=== PATIENT | male | born 1960 | race Caucasian/White ===

== ENCOUNTER → 2017-02-24 | Outpatient (CLI) | payer OTHER ==
[~2017-02-24] MED LIST: ATV/1 PO; BENADRYL PO; CLR10 PO; LAMO150T32 PO; LITH600C PO; TADA10TA PO
[2017-02-24 10:51] LABS: ALT/SGPT 22 U/L (12-78); AST/SGOT 9 U/L (15-37); BLOOD UREA NITROGEN 15 mg/dl (7-18); BUN/CREATININE RATIO 12.5 (10-20); CALCIUM 8.6 mg/dl (8.5-10.1); CARBON DIOXIDE 27 mmol/L (21-32); CHLORIDE 111 mmol/L (98-107); GLUCOSE 144 mg/dl (70-99); POTASSIUM 4.2 mmol/L (3.5-5.1); SODIUM 145 mmol/L (136-145)
[2017-02-24 10:57] LABS: ALB/GLOB RATIO 1.1 (0.9-2); ALKALINE PHOSPHATASE 76 U/L (45-117)
== END | disposition home or self-care (01) ==
LOC: C.LAB1850 09:16
PROVIDERS: ATTEND Family Medicine
DX: N40.1 Benign prostatic hyperplasia with lower urinary tract symptoms (principal); Z11.59 Encounter for screening for other viral diseases; N32.81 Overactive bladder

== ENCOUNTER → 2017-06-25 | Outpatient (CLI) | payer OTHER ==
[2017-06-25 13:24] LABS: ESTIMATED AVERAGE GLUCOSE 111 mg/dl; HA1C FLAG Normal (Normal)
[2017-06-25 15:07] LABS: ALT/SGPT 22 U/L (12-78); AST/SGOT 9 U/L (15-37); BLOOD UREA NITROGEN 12 mg/dl (7-18); CALCIUM 8.9 mg/dl (8.5-10.1); CARBON DIOXIDE 27 mmol/L (21-32); CHLORIDE 110 mmol/L (98-107); CHOLESTEROL 185 mg/dl (0-200); GLUCOSE 80 mg/dl (70-99); POTASSIUM 4.3 mmol/L (3.5-5.1); SODIUM 145 mmol/L (136-145); TRIGLYCERIDES 149 mg/dl (0-150); VERY LOW DENSITY LIPOPROT CALC 30 mg/dl
[2017-06-25 15:18] LABS: ALB/GLOB RATIO 1.1 (0.9-2); ALKALINE PHOSPHATASE 66 U/L (45-117); CHOLESTEROL/HDL RATIO 5.1; HDL CHOLESTEROL 36 mg/dl; LDL CHOLESTEROL CALCULATED 119 mg/dl
== END | disposition home or self-care (01) ==
LOC: C.LAB1850 11:29
PROVIDERS: ATTEND Physician Assistant Medical
DX: Z00.00 Encounter for general adult medical examination without abnormal findings (principal); N32.81 Overactive bladder; G47.33 Obstructive sleep apnea (adult) (pediatric)

== ENCOUNTER → 2017-08-13 | Outpatient (CLI) | payer OTHER | END | disposition home or self-care (01) | LOC: C.PATHSPEC 16:01 | PROVIDERS: ATTEND Dermatology | DX: D22.5 Melanocytic nevi of trunk (principal) ==

== ENCOUNTER → 2017-08-25 | Outpatient (CLI) | payer OTHER ==
--- NOTE | 2017-08-26 05:40 | PAP/PSG TECHNICIAN REPORT ---
[facility] Clay Temperer Polysomnogram Report Study name: None Report date: 08/26/2017 Study date: 08/25/2017 Referring Physician: Dr. Kevin Dinero DO Name: EVELYN SCHULZ Interpreting Physician: Kevin Dinero D.O. Date of : 1960 Clay Temperer: AL Ramirez. Sex: Male Age: 56 StudyType: PSG Weight: 210 lbs Height: 56 years, Height 5' 10.5" Neck Circum: 17 inches BMI: 29.7 Medications: Fluticasone Propionate 50 MCG/ACT, Lamictal 150 mg, [place] Carbonate 300 mg, Claritin D, Lorazepam 0.5 mg Patient History 56 yr. old male here for a possible split night sleep study in room 2. Patient complains of snoring, and witnessed apneas by his . Patient has tried CPAP in the past without success. He has an over active bladder and gets up 5-8 times to use the restroom. Patients [place] Sleepiness Scale Score is 10/24. Parameters Monitored NPSG: E1-M2, E2-M1, Fp1-M2, Fp2-M1, F3-M2, F4-M2, F4-M1, C3-M2, C4-M2, C4-M1, O1-M2, O2-M2, O2-M1, T3-M2, T4-M1, P3-M2, P4-M1, CHIN1, CHIN2, HR, EKG, Legs, PFLOW, SNOR, FLOW, CFLOW, Tidal Volume, THOR, ABDO, SpO2, PLTH, CPRESS, ETCO2 Wave, ETCO2, pH Sleep Architecture Sleep Stages Time at Lights Off 10:57:32 PM STAGES Time (min.) TST (%) Time at Lights On 5:22:02 AM Wake 274.5 -- Total Recording Time (TRT) 384.50 min. N1 49.5 45 Total Sleep Period (TSP) 345.5 min. N2 60.5 55 Total Sleep Time (TST) 110.0min. N3 0.0 0 Awake Time 274.5 min. REM 0.0 0 Wake after Sleep Onset 268.0 min. Sleep Efficiency (SE) 29 % Sleep Onset Latency (ANKUR) 6.5 min. Number of Stage 1 Shifts None Awakenings 45 Stage Changes 128 Number of REM periods N/A REM 0.0 0 REM Latency NONE min. NREM 110.0 100 Body Position Analysis Supine Right Left Side Prone Vertical Total Sleep Time (min.) 154.7 12.5 0.0 12.45 95.4 10.5 Total Sleep Time (%) 72% 11% 0% 11 14% 100% Total Sleep Time REM (min.) 0.0 0.0 0.0 None 0.0 0.0 Total Sleep Time NREM (min.) 79.0 12.5 0.0 None 15.5 3.0 Intermittent Wake (min.) 75.7 111.4 0.0 None 79.9 7.4 Total Sleep Period (%) 39% None None None None None Arousals Myoclonus (PLM) * Events Count Index Events Count Index Spontaneous 10 5 Events Awake (PLMW) 430 94.0 Respiratory 53 32.2 Events Asleep w/ Arousal (PLMA) 19 10.4 PLM 18 10 Events Asleep w/o Arousal (PLMS) 87 47.5 Snoring 16 9 Total Asleep 106 57.8 Total 97 53 Total 536 84 Respiratory Analysis * CA OA MA CH H RERA Total Count 2 67 4 0 39 3 112 Index 1.1 36.5 2.2 0 21.3 2 62.7 Mean Duration 16.4 24.0 17.0 0.00 20.7 24.0 22.5 Longest Duration 20.3 48.5 19.6 0.00 19.6 24.2 49.7 Respiratory Event Summary Total Supine ~Supine Right Left Prone REM NREM Apneas Count 73 62 11 8 N/A 3 N/A 73 Index 39.8 47 21 38.5 N/A 12 N/A 40 Hypopneas (4% Desat) Count 39 32 7 0 N/A 6 N/A 39 Index 21.3 24.3 14 0.0 N/A 23.2 N/A 21.3 Apneas & All Hypopneas Count 112 94 18 8 N/A 9 N/A 112 Index 61.1 71 35 39 N/A 35 N/A 61.1 Respiratory Events (Medical Oncology Physician+All Hyp+RERA) Count 112 97 18 8 N/A 9 N/A 112 Index 62.7 74 35 38.5 N/A 34.8 N/A 62.7 Respiratory Related Arousal Count 53 97 12 8 N/A 4 N/A 59 Index 32.2 36 23 39 N/A 15 N/A 32 Snoring Analysis Supine Right Left Prone REM NREM Total Snore duration 14.5 min Snores count 304 19 N/A 76 N/A 412 412 Snore mean duration 2.1 Sec Snores index 231 92 N/A 294 N/A 224.7 224.7 TST with snoring (%) 13.2% Desaturation Event Summary: Minimum %SpO2 Event Count Mean/Min/Max Duration(sec.) Desaturation Index % Time In Bed > 90 154 24.4 / 8.0 / 58.0 28.1 94.0 86 - 90 6 18.8 / 10.5 / 27.8 18.2 5.7 81 - 85 1 14.8 / 14.8 / 14.8 53.9 0.3 76 - 80 0 N/A 0.0 0.0 71 - 75 0 N/A 0.0 0.0 66 - 70 0 N/A 0.0 0.0 61 - 65 0 N/A 0.0 0.0 56 - 60 0 N/A 0.0 0.0 51 - 55 0 N/A 0.0 0.0 < 50 0 N/A 0.0 0.0 Total REM NREM Awake <50% 0.0 min. 0.0 min. 0.0 min. 0.0 min. 51 - 60% 0.0 min. 0.0 min. 0.0 min. 0.0 min. 61 - 70% 0.0 min. 0.0 min. 0.0 min. 0.0 min. 71 - 80% 0.0 min. 0.0 min. 0.0 min. 0.0 min. 81 - 90% 20.9 min. 0.0 min. 10.2 min. 10.6 min. 91 - 100% 328.5 min. 0.0 min. 99.1 min. 229.5 min. Average 94 0 93 94 Minimum SpO2 80 N/A 86 80 Desaturation Event Index 24.2 0.0 50.7 14.2 # Desat. Events below 89% 25 N/A 11 14 Time(%) with Saturation below 89% 1.2 0.0 0.5 0.7 Time(min.) with Saturation below 89% 4.2 0.0 1.6 2.6 Time (mins) REM (mins) NREM (mins) % of TST SpO2 Below 90% 61 N/A N61 3.4 SpO2 Below 88% 5 0 0 0 Heart Rate Analysis Min (bpm) Max (bpm) Average (bpm) Awake 54 127 66 NREM 52 81 64 REM N/A N/A N/A Overall 52 81 64 Supplemental O2 Values Minimum O2 level: None Value Start Time End Time Clay Temperer Comments Mr. Schulz slept in the right, left, supine and prone positions. No cardiac arrhythmia. PLMs noted. No bruxism noted. Snoring was noted and scored as a 3 on a scale of 0 through 5. (0=no snoring, 5=snoring loud enough to be heard through a closed door or down the [address]) Mr. Schulz used the restroom seven times during the night. Mr. Schulz stated, that was a rough night. The final report will be interpreted and signed by a sleep physician. The completed physician report will then be placed in the patient medical record. Therapy (cm H2O) 0 TIB (min.) 384.5 TST (min.) 110.0 Sleep Onset (min.) 6.5 REM Onset From Sleep (min.) NONE Sleep Efficiency % 29 Wakefulness (%) 71 Wakefulness (min.) 274.5 NREM 1 (%) 45 NREM 1 (min.) 49.5 NREM 2 (%) 55 NREM 2 (min.) 60.5 NREM 3 (%) 0 NREM 3 (min.) 0.0 REM (%) 0 REM (min.) 0.0 # Arousals 97 Arousal Index 53 # Snore 412 Snore Index 224.7 AHI 61.1 AHI Supine 71 AHI Non-Supine 35 NREM AHI 61.1 REM AHI N/A RDI 62.7 # Obstructive Apnea 67 # Central Apnea 2 # Mixed Apnea 4 # Hypopneas 39 RERAs 3 Total Respiratory Events 146 Time Below SpO2 89% (min.) 1.6 Mean NREM SpO2 (%) 93 Mean REM SpO2 (%) N/A Mean Sleep SpO2 (%) 93 Min NREM SpO2 (%) 86 Min REM SpO2 (%) N/A Position Supine (min.) 154.7 Position Non-supine (min.) 31.0 LM Index Sleep 57.8 LM Index NREM 57.8 LM Index REM N/A Mean Heart Rate (bpm) 64 Min Heart Rate (bpm) 52
--- NOTE | 2017-08-28 07:49 | Sleep Study ---
Sleep Study Report Date of Service: 08/25/2017 Sleep Study Report Clinical data: The patient is a 56-year-old male with a prior history of sleep apnea. A sleep study done 11/13/2013 showed moderate apnea with apnea-hypopnea index of 24. He was given a trial of an auto CPAP but did not do well. He has had problems with snoring, observed apneas, disturbed nocturnal sleep, and short-term memory problems. He does have a history of bipolar disorder. He completed the [place] Sleepiness Scale and had a score of 14 out of a possible 24. Sleep architecture: The total sleep period was 345.5 minutes. The total sleep time was only 110.0 minutes. The sleep efficiency was severely reduced to 29 percent. The sleep latency was normal at 6.5 minutes. Wake after sleep onset was elevated at 268 minutes. Sleep consisted of stage N1 45 percent, stage N2 55 percent, stage N3 0 percent , stage REM 0 percent. Arousal data: The patient had a total of 97 arousals including 10 spontaneous arousals, 53 respiratory arousals, 18 PLM arousals, and 16 snoring arousals. The arousal index was elevated at 53. PLM data: The patient had a total of 106 periodic limb movements of sleep for a PLM index of 57.8. There were 19 arousals associated with limb movements for a PLM arousal index of 10.4. EKG: The underlying cardiac rhythm was normal sinus. The cardiac rates ranged from 52 to 81 beats per minute. The average heart rate was 64 beats per minute. No cardiac arrhythmia was noted. Respiratory data: The patient had a total of 112 respiratory events including 2 central apneas, 67 obstructive apneas, 4 mixed apneas, and 39 hypopneas. Hypopneas were scored according to the 4 percent desaturation rule. The longest apnea was 48.5 seconds. The mean duration of the apneas was 24 seconds. The mean duration of the hypopneas was 20.7 seconds. The apnea-hypopnea index was severely elevated at 61.1 events per hour. Oximetry data: The average saturation was 94 percent. The minimum saturation was 80 percent. He had only 4.2 minutes with saturations less than 89 percent. Sanitation Supervisor comments: The patient slept on the right, left, supine, and prone positions. No cardiac arrhythmia. PLMS noted. No bruxism noted. Snoring was noted and scored as a 3 on a scale of 0 through 5. The patient use the restroom 7 times during the night. Impressions: 1. Obstructive sleep apnea-severe 2. Periodic limb movement disorder Comments: The patient has very poorly consolidated sleep. His sleep efficiency was severely reduced. Sleep architecture was severely abnormal. There was no stage N3 or REM sleep. The patient has a history of an overactive bladder. He did have to go to the bathroom numerous times during the nighttime as noted. He had minimal sleep time but he had severe sleep apnea when he did sleep. In light of the fact he had such a small amount of sleep time a split study could not be done. There were some transient oxygen desaturations. The patient had a significant number of limb movements as well as the apneas. It is unclear what role this problem may play in his sleep consolidation. It should be noted that the patient does take lorazepam for sleep. It is unknown with certainty if he took the lorazepam on the night of this study. The patient's medication list includes Claritin D. This medicine may contribute to insomnia. Reportedly he does take this medicine in the morning. The patient has a history of bipolar disorder. It is unknown what role this problem plays in his symptom complex. Recommendations: 1. It is suggested that the patient be treated with nasal CPAP therapy. The options would include treatment with auto CPAP versus a in-lab CPAP titration study. The choice may depend upon whether the patient still has his own CPAP machine. 2. If possible the patient should avoid sleeping in the supine position as there is typically more respiratory events while supine. It should be noted that 72 percent of the night of this study he was in the supine position when sleeping. 3. The patient has a mild elevation of body mass index. A weight reduction program is advised. 4. Consideration may be given to pharmacologic therapy for the underlying limb movement disorder in the hopes of better consolidating his sleep. Copies To 1: Kevin Dinero DO; Miranda Rodriguez PAC
== END | disposition home or self-care (01) ==
LOC: C.NEUR 20:00
PROVIDERS: ATTEND Internal Medicine Pulmonary Disease
DX: G47.33 Obstructive sleep apnea (adult) (pediatric) (principal)

== ENCOUNTER → 2017-08-27 | Outpatient (CLI) | payer OTHER | END | disposition home or self-care (01) | LOC: C.PATHSPEC 17:43 | PROVIDERS: ATTEND Dermatology | DX: D23.5 Other benign neoplasm of skin of trunk (principal) ==

== ENCOUNTER → 2017-12-03 | Outpatient (CLI) | payer OTHER ==
[~2017-12-03] MED LIST changes: +LAMO150T PO; -LAMO150T32 PO
[2017-12-03 11:26] LABS: BASO % 0.5 %; BASO ABS # 0.04 K/uL (0-0.2); EOS ABS # 0.23 K/uL (0-0.5); HEMATOCRIT 44.5 % (42-52); HEMOGLOBIN 14.8 g/dL (14.0-18.0); IG# 0.01 K/uL (0.00-0.02); LYMPH % 19.5 %; MEAN CELL VOLUME 90.8 fL (80-100); MEAN CORPUSCULAR HEMOGLOBIN 30.2 pg (25-34); MEAN CORPUSCULAR HGB CONC 33.3 g/dl (32-36); MEAN PLATELET VOLUME 10.2 fL (7.4-10.4); MONO % 8.1 %; MONO ABS # 0.62 K/uL (0.11-0.59); NEUT % 68.8 %; NEUT ABS # 5.29 K/uL (1.4-6.5); PLATELET COUNT 231 K/uL (130-400); RED CELL DISTRIBUTION WIDTH CV 13.6 % (11.5-14.5); RED CELL DISTRIBUTION WIDTH SD 44.4 fL (36.4-46.3); WHITE BLOOD COUNT 7.69 K/uL (4.8-10.8)
[2017-12-03 12:06] LABS: CREATININE 1.27 mg/dl (0.60-1.40)
[2017-12-03 12:06] LABS: ALBUMIN 3.5 gm/dl (3.4-5.0); ALT/SGPT 26 U/L (12-78); AST/SGOT 12 U/L (15-37); BLOOD UREA NITROGEN 14 mg/dl (7-18); CALCIUM 8.7 mg/dl (8.5-10.1); CARBON DIOXIDE 28 mmol/L (21-32); GLUCOSE 173 mg/dl (70-99); POTASSIUM 3.9 mmol/L (3.5-5.1); SODIUM 138 mmol/L (136-145)
[2017-12-03 12:08] LABS: ALKALINE PHOSPHATASE 77 U/L (45-117)
== END | disposition home or self-care (01) ==
LOC: C.LAB1850 09:49
PROVIDERS: ATTEND Psychiatry & Neurology Child & Adolescent Psychiatry
DX: F31.9 Bipolar disorder, unspecified (principal); K92.1 Melena; R03.0 Elevated blood-pressure reading, without diagnosis of hypertension

== ENCOUNTER → 2017-12-03 | Outpatient (CLI) | payer OTHER ==
[~2017-12-03] VITALS: Ht 179.1 cm; Wt 99.2 kg
[2017-12-03 11:09] VITALS: BP 136/96; PULSE 71; Ht 179.1 cm; Wt 99.2 kg
== END | disposition home or self-care (01) ==
LOC: C.NEUR 10:50
PROVIDERS: ATTEND Internal Medicine Pulmonary Disease
DX: G47.33 Obstructive sleep apnea (adult) (pediatric) (principal)

== ENCOUNTER → 2017-12-15 | Outpatient (CLI) | payer OTHER ==
[2017-12-15 14:00] LABS: HEMOGLOBIN A1C 5.5 % (4.5-5.6)
== END | disposition home or self-care (01) ==
LOC: C.LABBC 11:31
PROVIDERS: ATTEND Nurse Practitioner Adult Health
DX: R73.01 Impaired fasting glucose (principal)

== ENCOUNTER → 2018-02-05 | Outpatient (CLI) | payer OTHER | END | disposition home or self-care (01) | LOC: C.PATHSPEC 13:22 | PROVIDERS: ATTEND Dermatology | DX: D22.9 Melanocytic nevi, unspecified (principal); L82.1 Other seborrheic keratosis ==